=== PATIENT | male | born 1980 ===

== ENCOUNTER 2022-02-06 06:37 | Emergency (ER) | payer SELFPAY ==
[2022-02-06 07:19] VITALS: BP 130/102
--- NOTE | 2022-02-06 08:38 | XRay Report ---
XR hand 3+V LT INDICATION / CLINICAL INFORMATION: pain sp fall. COMPARISON: None available. FINDINGS: BONES/JOINT(S): No acute fracture or subluxation. No significant degenerative changes. No focal bone erosions or focal osteopenia to suggest inflammatory arthropathy. SOFT TISSUES: No significant abnormality. ADDITIONAL FINDINGS: None. Signer Name: Eliecer Walton MD Signed: 02/06/2022 8:33 AM Workstation Name: [id number]
--- NOTE | 2022-02-06 08:42 | Emergency Department Report ---
ED Upper Extremity Inj HPI - General Chief Complaint: Extremity Injury, Upper Stated Complaint: LEFT HAND INJURY Time Seen by Provider: 02/06/22 07:50 Source: patient Mode of arrival: Ambulatory Limitations: No Limitations - History of Present Illness Initial Comments: Patient is a 41-year-old male that comes to the ER complaining of left hand pain after hitting it on something at the house yesterday. He denies punching anything. He denies any other injury. He is neurovascularly intact. He just has persistent left hand swelling so he comes to the ER. He is taking nothing for the pain prior to arrival in the ER. Complaint: Injury to:: left -: Sudden, days(s) Other Injuries: none Handedness: right Place: home Worsens With: none Context: direct blow Associated Symptoms: denies other symptoms - Related Data Allergies Allergy/AdvReac Type Severity Reaction Status Date / Time No Known Allergies Allergy Unverified 02/06/22 08:46 ED Review of Systems ROS: Stated complaint: LEFT HAND INJURY Other details as noted in HPI Comment: All other systems reviewed and negative ED Past Medical Hx - Past Medical History Previous Medical History?: No - Surgical History Past Surgical History?: No - Family History Family history: no significant - Social History Smoking Status: Never Smoker Substance Use Type: None ED Physical Exam - General Limitations: No Limitations General appearance: alert, in no apparent distress - Head Head exam: Present: atraumatic, normocephalic - Eye Eye exam: Present: normal appearance - ENT ENT exam: Present: mucous membranes moist - Neck Neck exam: Present: normal inspection - Respiratory Respiratory exam: Present: normal lung sounds bilaterally. Absent: respiratory distress - Cardiovascular Cardiovascular Exam: Present: regular rate, normal rhythm. Absent: systolic murmur, diastolic murmur, rubs, gallop - GI/Abdominal GI/Abdominal exam: Present: soft, normal bowel sounds - Rectal Rectal exam: Present: deferred - Extremities Exam Extremities exam: Present: normal inspection - Back Exam Back exam: Present: normal inspection - Neurological Exam Neurological exam: Present: alert, oriented X3 - Psychiatric Psychiatric exam: Present: normal affect, normal mood - Skin Skin exam: Present: warm, dry, intact, normal color. Absent: rash ED Course Vital Signs 02/06/22 07:18 Temperature 98.4 F Pulse Rate 73 Respiratory 14 Rate Blood Pressure 130/102 [Right] O2 Sat by Pulse 98 Oximetry ED Medical Decision Making - Radiology Data Radiology results: report reviewed, image reviewed No acute process - Medical Decision Making X-ray negative. Patient wrapped in an Miguel for comfort. Patient educated on rice therapy Patient being discharged home with discharge plan of care including diet, activity, medications and follow-up. He verbalizes understanding of plan of care. On discharge patient remains neurovascularly intact. He has rapid cap refill. He has full range of motion of the hand. Vital Signs 02/06/22 07:18 Temperature 98.4 F Pulse Rate 73 Respiratory 14 Rate Blood Pressure 130/102 [Right] O2 Sat by Pulse 98 Oximetry - Differential Diagnosis Rule out fracture Critical care attestation.: If time is entered above; I have spent that time in minutes in the direct care of this critically ill patient, excluding procedure time. ED Disposition Clinical Impression: Hand contusion Qualifiers: Encounter type: initial encounter Disposition: HOME / SELF CARE / HOMELESS Is pt being admited?: No Does the pt Need Aspirin: No Condition: Stable Instructions: Contusion, [id number] Additional Instructions: rest/ice/elevate motrin or tylenol for pain miguel for 72 hours for comfort follow up with ortho if pain persists referral below Referrals: MARIA D ROBERT MD [Staff Physician] - 3-5 Days Forms: Work/School Release Form(ED) Time of Disposition: 08:43
[2022-02-06] MEDS ORDERED: IBUPROFEN 800 MG TAB PO NR (09:00)
== END 2022-02-06 09:30 | disposition home or self-care (01) ==
LOC: ED 06:37
DX: S60.222A Contusion of left hand, initial encounter (principal); W22.8XXA Striking against or struck by other objects, initial encounter; Y93.89 Activity, other specified; Y92.89 Other specified places as the place of occurrence of the external cause; Y99.8 Other external cause status
CPT/HCPCS: 99283